=== PATIENT | male | born 1955 | race Caucasian/White ===

== ENCOUNTER 2024-09-16 13:34 | Emergency (ER) | payer MEDICARE, MEDICAID, SELFPAY ==
[2024-09-16 13:35] VITALS: BMI 21.2
[2024-09-16 14:09] VITALS: BP 151/99; PULSE 102; RESP 18; TEMP 36.4; O2SAT 94
--- NOTE | 2024-09-16 14:55 | PD.EDRME ---
Rapid Medical Screening Exam RME Arrival date/time: 09/16/24 13:34 Chief Complaint: Shortness of Breath/Dyspnea Time Seen by Provider: 09/16/24 14:13 Vital signs: Vital Signs Temperature 97.6 F 09/16/24 14:09 Pulse Rate 102 H 09/16/24 14:09 Respiratory Rate 18 09/16/24 14:09 Blood Pressure 151/99 H 09/16/24 14:09 Pulse Oximetry (%) 94 L 09/16/24 14:09 Oxygen Delivery Method Room Air 09/16/24 14:09 Vital signs reviewed by provider: Yes RME Narrative: 68-year-old male presents to the ED with a complaint of shortness of breath and dyspnea on exertion that began this morning. Care provider denies any fever, vomiting but has noticed a decreased appetite, runny nose, and nasal congestion. Patient is noted to have expiratory wheezing and a decreased O2 sat of 94%. Labs and x-ray is ordered.
--- NOTE | 2024-09-16 14:58 | EKG_ITS ---
[facility] Test Date: 2024-09-16 Pat Name: MARTY ANDRADE Department: Room: - Gender: Male Retirement Administrator: : 1955 Requested By: Ami Benavidez Order Number: [id number] Reading MD: Ami Benavidez Measurements Intervals [place] Rate: 102 P: 64 MS: 151 QRS: 60 QRSD: 85 T: 54 QT: 310 QTc: 405 Interpretive Statements SINUS TACHYCARDIA POSSIBLE LEFT ATRIAL ENLARGEMENT [-0.1mV P-WAVE IN V1/V2] POSSIBLE RIGHT VENTRICULAR CONDUCTION DELAY [RSR (QR) IN V1/V2] ANTEROSEPTAL MYOCARDIAL INFARCTION , OF INDETERMINATE AGE [40+ ms Q WAVE IN V1-V4] Compared to ECG 05/01/2023 10:58:12 Myocardial infarct finding now present Sinus rhythm no longer present /store/S0/[id number]/ecg/[id number].pdf
--- NOTE | 2024-09-16 14:58 | XR_ITS ---
Examination: AP lateral chest 2 views Technique: AP lateral chest 2 views Indications: Coughing beginning the radiologist Findings: Significant hyperexpansion. Kyphosis dorsal spine. Normal heart size. Enlarged ectatic thoracic aorta. Prominent osteopenia. No pneumonia or pulmonary edema Impression: COPD. No pneumonia or pulmonary edema
[2024-09-16 15:30] LABS: Lactate (Lactic Acid) 0.8 mMol/L (0.4-2.0)
[2024-09-16 15:32] LABS: Basophils % (Auto) 0 % (0-2.5); Eosinophils # (Auto) 0.2 Thou/mm3 (0.0-0.5); Eosinophils % (Auto) 3 % (0-10); Hematocrit 50.8 % (41.0-53.0); Immature Granulocytes % (Auto) 0 % (0-0); Immature Granulocytes Auto 0.01 Thou/mm3 (0.00-0.00); Lymphocytes # (Auto) 0.4 Thou/mm3 (1.0-4.8); Lymphocytes % (Auto) 6 % (10-50); Mean Corpuscular HGB Conc 31.5 g/dl (31.0-37.0); Mean Corpuscular Hemoglobin 29.3 pg (25.0-35.0); Mean Corpuscular Volume 93 fL (80-100); Monocytes # (Auto) 0.6 Thou/mm3 (0.0-0.8); Monocytes % (Auto) 10 % (0-12); Neutrophils % (Auto) 81 % (37-80); Nucleated Red Blood Cell % 0 /100 WBC (0); Platelet Count 188 Thou/mm3 (140-440); RDW Standard Deviation 52.3 fL (35.1-43.9); Red Blood Count 5.47 Miln/mm3 (4.50-5.90); White Blood Count 6.2 Thou/mm3 (3.8-10.6)
[2024-09-16 15:49] LABS: Partial Thromboplastin Time 25.7 Seconds (22.0-36.0); Prothrombin Time 10.9 Seconds (9.0-12.2)
[2024-09-16 15:50] LABS: B-Type Natriuretic Peptide < 20 pg/mL (0-100)
[2024-09-16 15:59] LABS: Alanine Aminotransferase 17 U/L (10-49); Albumin, Serum 4.6 gm/dL (3.4-4.8); Albumin/Globulin Ratio 1.5 (1.2-2.2); Alkaline Phosphatase 109 U/L (46-116); Anion Gap 7 (7-16); Aspartate Amino Transferase 20 U/L (0-34); BUN/Creatinine Ratio 25 Ratio (12-20); Bilirubin,Total 0.4 mg/dL (0.3-1.2); Blood Urea Nitrogen 20 mg/dL (9-23); Calcium 9.7 mg/dL (8.3-10.6); Calcium (Corrected) 9.7 mg/dL (8.5-10.1); Chloride 112 mMol/L (98-107); Creatinine (Component) 0.8 mg/dL (0.6-1.3); Estimated Creatinine Clearance 74.6 mL/min (>60); Globulin 3.1 gm/dL (2.3-3.5); Glucose 108 mg/dL (74-106); LDH (Lactate Dehydrogenase) 198 U/L (120-246); Magnesium 2.3 mg/dL (1.6-2.6); Osmolality,Calculated 299 (275-295); Potassium 4.4 mMol/L (3.4-5.1); Procalcitonin 0.04 ng/ml (0.0-0.49); Sodium 149 mMol/L (136-145); Total Protein 7.7 gm/dL (5.7-8.2); Troponin I < 0.020 ng/mL (0.0-0.045); eGFR > 60 See Note
[2024-09-16 16:00] LABS: Respiratory Syncytial Virus Ag Negative (Negative)
[2024-09-16] MEDS: ALBUTEROL/IPRATROPIUM (Duoneb) RT SOL 3 ML NEBU INH (17:30)
[2024-09-16 17:34] VITALS: PULSE 112; RESP 20; O2SAT 97
--- NOTE | 2024-09-16 17:38 | PRELIM_ITS ---
Radiographs of the chest (3 views). September 16, 2024 1725 hours Clinical history: Chest Pain Findings: The aorta is ectatic with atheromatous calcification of the aortic arch. The heart size is within normal limits. The lungs are clear. There is no pleural effusion. The bones are osteopenic. Degenerative changes are identified in the spine. Impression: No acute cardiopulmonary process. Report Electronically Signed By: Carlee Tellez 09/16/2024 5:38:07 PM [EST]
[2024-09-16 18:52] VITALS: BP 133/73; PULSE 108; RESP 15; TEMP 36.4; O2SAT 93
--- NOTE | 2024-09-16 18:58 | PD.EDADULT ---
ED General RME/HPI General Chief complaint: Shortness of Breath/Dyspnea Stated complaint: LABORED BREATHING, COUGHING, NASAL DISCHARGE X 1D Time Seen by Provider: 09/16/24 14:13 Arrival date/time: 09/16/24 13:34 CC: Cough with perceived shortness of breath HPI onset yesterday. Nasal discharge was described as clear, the patient is basically nonverbal care provider bedside stating that the patient has had this persistent cough all night it has been annoying it is dry in nature. She says at this at some point the coughing was hard enough she PE appeared short of breath. RME / HPI RME / HPI narrative: 68-year-old male presents to the ED with a complaint of shortness of breath and dyspnea on exertion that began this morning. Care provider denies any fever, vomiting but has noticed a decreased appetite, runny nose, and nasal congestion. Patient is noted to have expiratory wheezing and a decreased O2 sat of 94%. Labs and x-ray is ordered. Related Data Home Medications ?Medication ?Instructions ?Recorded ?Confirmed food supplemt, lactose-reduced 1 can PO 5x a day ##120 04/19/16 08/20/18 0.05 gram-1.5 kcal/mL oral liquid (Ensure Plus) lactulose 10 gram/15 mL oral 10 gm PO QDAY ##473 04/19/16 08/20/18 solution linaclotide 145 mcg capsule 145 mcg PO 3x a week ##30 04/19/16 08/20/18 (Linzess) olanzapine 5 mg tablet 5 mg PO QDAY ##30 04/19/16 08/20/18 omeprazole 20 mg capsule,delayed 20 mg PO QDAY ##30 07/13/16 08/20/18 release docusate sodium 250 mg capsule 250 mg PO BID #0 caps 08/02/16 08/20/18 (DOK) benztropine 0.5 mg tablet 0.5 mg PO BID 02/09/18 08/20/18 denosumab 60 mg/mL subcutaneous See Rx Instructions .Route .COMPLEX 02/09/18 08/20/18 syringe (Prolia) famotidine 40 mg tablet 40 mg PO QDAY 02/09/18 08/20/18 polyethylene glycol 3350 17 gram 17 g PO QDAY 09/06/18 03/17/19 oral powder packet (Miralax) Previous Rx's ?Medication ?Instructions ?Recorded ondansetron 4 mg disintegrating 4 mg PO Q12H PRN nausea and 08/06/22 tablet vomiting #20 tabs benzonatate 100 mg capsule 100 mg PO BID PRN cough #14 caps 05/01/23 guaifenesin 200 mg/5 mL oral liquid 400 mg (10 mL) PO Q6H PRN cough 09/16/24 #118 mL prednisone 20 mg tablet See Taper PO BID 3 days #6 tabs 09/16/24 Allergies Allergy/AdvReac Type Severity Reaction Status Date / Time iron Allergy Unknown Verified 09/16/24 13:38 cholecalciferol (vitamin D3) Allergy Verified 09/16/24 13:38 (From Vitamin D3) Review of Systems Review of Systems Narrative Review of Systems: GEN: No fever, no chills, no weight loss EYES: No discharge, no visual changes, no pain HEENT: No ear pain, no congestion, no sore throat PULM: No shortness of breath, + cough, no congestion CV: No chest pain, no dyspnea on exertion, no palpitations GI: No nausea, no vomiting, no diarrhea, no pain, no constipation : No frequency, no urgency, no dysuria MUSC/SKEL: No joint pain, no back pain SKIN: No rash PSYCH: No hallucinations, no depression HEME/LYMPH: No easy bleeding or bruising tendencies NEURO: No weakness, no headache Past Medical History Past Medical History NEUROLOGIC: Positive Neurological Disorders and Seizures CARDIAC: Negative Cardiac Disorders or Congestive Heart Failure RESPIRATORY: Negative Chronic Obstructive Pulmonary Disease (COPD) or Asthma GASTROINTESTINAL: Positive Gastrointestinal Disorders and Gastroesophageal Reflux Disease GENITOURINARY: Negative Genitourinary Disorders or Renal Disease MUSCULOSKELETAL: Positive Musculoskeletal Disorders and Osteoporosis ENT: Positive Cataracts ENDOCRINE: Negative Endocrine Disorders, Diabetes Mellitus Type 1 or Diabetes Mellitus Type 2 HEMATOLOGIC: Positive Blood Disorders and Anemia; Negative Sickle Cell Disease PSYCHO/SOCIAL: Positive Anxiety and Behavior Problems OTHER HISTORY: Positive Developmental Delay; Negative Blood Transfusions, Blood Transfusion Reaction or Anesthesia Reactions Surgical History SURGICAL: Positive Joint Replacement Social History SMOKING STATUS: Never smoker Course Quality Measures none Orders Category Date Time Status EKG (ED ONLY) *Do not use* NOW Care 09/16/24 14:58 Completed EKG (ED Only) Stat Exams 09/16/24 14:58 Draft XR chest 2V Stat Exams 09/16/24 14:58 Completed B-Type Natriuretic Peptide Stat Lab 09/16/24 15:25 Completed CBC Stat Lab 09/16/24 15:25 Completed CMP [Comprehensive Metabolic Panel] Stat Lab 09/16/24 15:25 Completed LDH (Lactate Dehydrogenase) Stat Lab 09/16/24 15:25 Completed Lactic Acid [Lactate (Lactic Acid)] Stat Lab 09/16/24 15:25 Completed Magnesium Stat Lab 09/16/24 15:25 Completed Partial Thromboplastin Time Stat Lab 09/16/24 15:25 Completed Procalcitonin Stat Lab 09/16/24 15:25 Completed Prothrombin Time with INR Stat Lab 09/16/24 15:25 Completed RSV [Respiratory Syncytial Virus Ag] Stat Lab 09/16/24 15:14 Completed Troponin I Stat Lab 09/16/24 15:25 Completed Albuterol/Ipratr Rt [place] [Duoneb Rt [place]] Med 09/16/24 15:02 Discontinued 3 ml INH X1 ONE Vital Signs Vital signs: Vital Signs Temperature 97.6 F 09/16/24 14:09 Pulse Rate 102 H 09/16/24 14:09 Respiratory Rate 18 09/16/24 14:09 Blood Pressure 151/99 H 09/16/24 14:09 Pulse Oximetry (%) 94 L 09/16/24 14:09 Oxygen Delivery Method Room Air 09/16/24 14:09 [facility] Patient data External records reviewed:: [facility] previous records Clinical information provided by:: principal cloud architect Social determinants that could affect healthcare access:: none Patient has the following chronic illnesses:: Obesity How is presenting disease/condition affected by chronic disease/condition?: uneffected by Evaluation data The following diagnostics were reviewed and interpreted by me:: lab results and radiology exam(s) Lab and/or radiology exams considered but not ordered:: CBC shows no acute leukocytosis anemia thrombocytopenia Coags within acceptable limits CMP shows a sodium of 149 potassium of 4.4 chloride of 112 no other electrolyte imbalances glucose at 108 no transaminitis or T. bili elevation Troponin is negative BNP is negative Procalcitonin is negative RSV is negative Chest x-ray as interpreted by me read by radiology as negative. EKG done at 1508 shows a ventricular rate of 102 WV interval 151 QRS of 8 5 QTc of 369. This is sinus tachycardia. Interpretation Summary: Physical exam which is clear oxygen saturation of 92% on room air I suspect this patient is viral in nature as there is no acute finding requires emergent or immediate intervention. Patient be discharged on cough medicine and a small amount of steroids. Medications Medications considered but not ordered:: None Medication administrations:: Medication Administration History Discontinued Medications Albuterol/Ipratropium (Albuterol/Ipratropium (Duoneb) Rt [place] 3 Ml Nebu) 3 ml INH X1 ONE Stop: 09/16/24 15:03 Last Admin: 09/16/24 17:30 Dose: 3 ml Documented By: SHANNAN None Consultations Consultation(s) initiated? (list below): No Diagnosis Differential Diagnosis ED Complaint MDM: Pneumonia bronchitis viral syndrome Most likely diagnosis given after review of the tests above:: Cough probable viral syndrome Admission Indicated Admission indicated?: not indicated Explain why admission is indicated or not indicated:: Stable for discharge Admission Request Was there a request for admission?: No Disposition Plan Disposition Plan: Discharge Discharge Attestation Discharge Attestation: The patient and all family members were given an opportunity to ask questions and understood the discharge instructions. Discharge instructions specifically effects, indications for sooner follow up or return to the emergency department, and the expected course of current diagnosis. Patient condition: Stable Medical Decision Making Differential Diagnosis Differential Diagnosis: Pneumonia bronchitis viral syndrome Lab Data 09/16/24 15:25 09/16/24 15:25 Labs: Lab Results 09/16/24 09/16/24 Range/Units 15:14 15:25 WBC 6.2 (3.8-10.6) Thou/mm3 RBC 5.47 (4.50-5.90) Miln/mm3 Hgb 16.0 (13.5-16.0) g/dL Hct 50.8 (41.0-53.0) % MCV 93 (80-100) fL MCH 29.3 (25.0-35.0) pg MCHC 31.5 (31.0-37.0) g/dl RDW Std Deviation 52.3 H (35.1-43.9) fL Plt Count 188 (140-440) Thou/mm3 Neut % (Auto) 81 H (37-80) % Lymph % (Auto) 6 L (10-50) % [place] % (Auto) 10 (0-12) % Eos % (Auto) 3 (0-10) % Baso % (Auto) 0 (0-2.5) % Neut # (Auto) 5.0 (1.8-7.7) Thou/mm3 Lymph # (Auto) 0.4 L (1.0-4.8) Thou/mm3 [place] # (Auto) 0.6 (0.0-0.8) Thou/mm3 Eos # (Auto) 0.2 (0.0-0.5) Thou/mm3 Baso # (Auto) 0.0 (0.0-0.2) Thou/mm3 Immature Gran # (Auto) 0.01 H (0.00-0.00) Thou/mm3 Absolute Nucleated RBC 0.00 (0.00-0.00) Thou/mm3 Immature Gran % 0 (0-0) % Nucleated RBC % 0 (0) /100 WBC PT 10.9 (9.0-12.2) Seconds INR 1.0 (0.9-1.3) APTT 25.7 (22.0-36.0) Seconds Sodium 149 H (136-145) mMol/L Potassium 4.4 (3.4-5.1) mMol/L Chloride 112 H (98-107) mMol/L Carbon Dioxide 30.0 (20.0-31.0) mMol/L Anion Gap 7 (7-16) BUN 20 (9-23) mg/dL Creatinine 0.8 (0.6-1.3) mg/dL Estim Creat Clear Calc 74.6 (>60) mL/min eGFR > 60 (60 - ) See Note BUN/Creatinine Ratio 25 H (12-20) Ratio Glucose 108 H (74-106) mg/dL Calculated Osmolality 299 H (275-295) Lactic Acid 0.8 (0.4-2.0) mMol/L Calcium 9.7 (8.3-10.6) mg/dL Corrected Calcium 9.7 (8.5-10.1) mg/dL Magnesium 2.3 (1.6-2.6) mg/dL Total Bilirubin 0.4 (0.3-1.2) mg/dL AST 20 (0-34) U/L ALT 17 (10-49) U/L Alkaline Phosphatase 109 (46-116) U/L Lactate Dehydrogenase 198 (120-246) U/L Troponin I < 0.020 (0.0-0.045) ng/mL B-Natriuretic Peptide < 20 (0-100) pg/mL Total Protein 7.7 (5.7-8.2) gm/dL Albumin 4.6 (3.4-4.8) gm/dL Globulin 3.1 (2.3-3.5) gm/dL Albumin/Globulin Ratio 1.5 (1.2-2.2) Procalcitonin 0.04 (0.0-0.49) ng/ml RSV Rapid Negative (Negative) Discharge Plan Plan Patient Disposition: HOME (Self Care) Patient condition on transfer: Stable Prescriptions/Referrals Prescriptions/Med Rec: New guaifenesin 200 mg/5 mL liquid 400 mg PO Q6H PRN (Reason: cough) Qty: 118 0RF prednisone 20 mg tablet See Taper PO BID 3 Days Qty: 6 0RF Taper: Prednisone Taper 20 mg DAILY for 2 Days and 0 Hour 10 mg DAILY for 2 Days and 0 Hour 5 mg DAILY for 7 Days and 0 Hour No Action olanzapine 5 MG tablet 5 mg PO QDAY Qty: 30 lactulose 10 G/15 ML solution 10 gm PO QDAY Qty: 473 Ensure Plus 237 ML liquid 1 can PO 5x a day Qty: 120 Linzess 145 MCG capsule 145 mcg PO 3x a week Qty: 30 omeprazole 20 MG capsule,delayed release(DR/EC) 20 mg PO QDAY Qty: 30 docusate sodium [DOK] 250 MG capsule 250 mg PO BID Qty: 0 benztropine 0.5 mg Tablet 0.5 mg PO BID polyethylene glycol 3350 [Miralax] 17 gram Powder In Packet 17 g PO QDAY famotidine 40 mg Tablet 40 mg PO QDAY Prolia 60 mg/mL Syringe See Rx Instructions .ROUTE .COMPLEX Rx Instructions: every 6 months benzonatate 100 mg capsule 100 mg PO BID PRN (Reason: cough) Qty: 14 0RF ondansetron 4 mg tablet,disintegrating 4 mg PO Q12H PRN (Reason: nausea and vomiting) Qty: 20 0RF Referrals: Nehemiah Moon MD [Primary Care Provider] - In 1 week Problem List Clinical Impression: Cough Patient/Caregiver Discharge Instructions Education Materials: ED Cough Chronic Uncertain Cause Adult Additional Instructions: Take the medications as prescribed there is worsening symptoms follow-up with your primary care provider return the emergency room for further evaluation. Print Language: Pakistani Stand Alone Forms: Emilia Award Info., Work/School Release, Patient Portal Info Letter PA/LINESPERSON Supervising Physician PA/LINESPERSON Supervising Physician: Wade Lau ENP
== END 2024-09-16 19:11 | disposition home or self-care (01) ==
PROVIDERS: Physician Assistant; Emergency Provider Emergency Medicine; PCP Family Medicine
DX: R05.9 Cough, unspecified (principal); R00.0 Tachycardia, unspecified
CPT/HCPCS: 36415; 36600; 71046; 80053; 81001; 82803; 83605; 83615; 83735; 83880; 84145; 84484; 85025; 85610; 85730; 87400; 87502; 87634; 87811; 93005; 94640; 99283; A9270